=== PATIENT | female | born 1995 | race Caucasian/White ===

== ENCOUNTER 2021-08-24 10:10 | Emergency (ER) | payer OTHER, SELFPAY ==
[2021-08-24 10:22] VITALS: BP 111/75; PULSE 68; RESP 18; TEMP 36.5; O2SAT 100
--- NOTE | 2021-08-24 10:29 | ED.URI ---
HPI - URI/Sore Throat General Chief Complaint: Upper Respiratory Infection Stated Complaint: Sore Throat,Cough Time Seen by Provider: 08/24/21 10:30 Source: patient and RN notes reviewed Mode of arrival: ambulatory Limitations: no limitations History of Present Illness HPI Narrative: 25-year-old female presented for complaint of sinus pressure, congestion, sore throat, and cough for about 4 days. Endorses sick contacts, family is having similar symptoms. She is vaccinated for COVID but not flu. She has taken ibuprofen for symptoms. Denies shortness of breath, wheezing, nausea, vomiting, diarrhea, fever, chills or body aches. MD elicited complaint: cough Related Data Home Medications Medication Instructions Recorded Confirmed levothyroxine [Euthyrox] 88 mcg PO DAILY 08/24/21 08/24/21 sertraline 50 mg PO DAILY 08/24/21 08/24/21 Allergies Allergy/AdvReac Type Severity Reaction Status Date / Time No Known Allergies Allergy Mild Verified 08/24/21 10:35 Review of Systems Review of Systems: CONSTITUTIONAL: Denies malaise, chills, sweats, fever EYES: Denies visual changes, redness, or discharge ENT: Reports rhinorrhea, congestion, sinus pain, otalgia, sore throat CARDIOVASCULAR: Denies chest pain, palpitations, edema RESPIRATORY: Reports cough, post nasal drainage. Denies dyspnea GASTROINTESTINAL: Denies abdominal pain, nausea, vomiting, diarrhea SKIN: Denies rash or itching MUSCULOSKELETAL: Denies myalgia NEUROLOGIC: Denies headache Exam Narrative: GENERAL: Ill-appearing, nontoxic HEAD: Normocephalic EYES: PERRLA, conjunctivae clear ENT: Mucous membranes moist. TM pearly sanz with scarring and light reflex bilaterally; no tragal tenderness. Oropharynx erythematous without lesions or exudate, no drooling, no hoarseness, no trismus, uvula midline. No tripod positioning, muffled voice, soft palate or pharyngeal wall bulging NECK: Supple. No lymphadenopathy CHEST: Clear to auscultation, breath sounds equal. No wheezing, rhonchi, rales, or stridor. No respiratory distress, speaks in full sentences. HEART: Regular rate and rhythm. No murmur heard. SKIN: Warm, dry, no rash. NEURO: Alert and oriented x3. PSYCH: Normal mood and affect Course Course Emergency Course: Patient is aware of diagnosis, understands and agrees to treatment plan. Anticipatory guidance given. Patient agrees to follow-up as directed and is aware of reasons to seek care at the emergency department. Portions of this record may have been created with voice recognition software Level of Care: Express Care Visit Vital Signs Vital signs: Vital Signs Temperature 97.7 F 08/24/21 10:22 Pulse Rate 68 08/24/21 10:22 Respiratory Rate 18 08/24/21 10:22 Blood Pressure 111/75 08/24/21 10:22 Pulse Oximetry 100 08/24/21 10:22 Temperature 97.7 F 08/24/21 10:22 Pulse Rate 68 08/24/21 10:22 Respiratory Rate 18 08/24/21 10:22 Blood Pressure 111/75 08/24/21 10:22 Pulse Oximetry 100 08/24/21 10:22 reviewed MDM - URI/Sore Throat MDM Narrative Medical decision making narrative: strep neg, flu neg, covid neg Sx c/w URI, will continue supportive treatment and f/u with PCP. Differential Diagnosis Differential diagnosis: Likely upper respiratory infection, sinusitis, viral infection, influenza and pharyngitis Lab Data Attestation: I reviewed the patient's lab results. Labs: Strep Screen Presumptive Negative *(Reference Range: Negative)* Discharge Plan Discharge Clinical Impression: Upper respiratory infection Qualifiers: URI type: unspecified URI Qualified Code(s): J06.9 - Acute upper respiratory infection, unspecified Patient Disposition: Home, Self-Care Condition: Stable Instructions: Antibiotic Form, Upper Respiratory Infection (ED) Additional Instructions: Rapid strep swab was negative today You will be notified in a few days if the culture comes
== END 2021-08-24 11:05 | disposition home or self-care (01) ==
PROVIDERS: Emergency Provider Nurse Practitioner Family; PCP Family Medicine
DX: J06.9 Acute upper respiratory infection, unspecified (principal); Z20.822 Contact with and (suspected) exposure to COVID-19
CPT/HCPCS: 87081; 87426; 87804; 87880; 99213; C9803; G0463

== ENCOUNTER 2021-10-18 16:07 | Emergency (ER) | payer OTHER, SELFPAY ==
[2021-10-18 16:09] VITALS: BP 126/81; PULSE 88; RESP 18; TEMP 36.2; O2SAT 98
--- NOTE | 2021-10-18 16:35 | ED.FEMALEGU ---
HPI - Female Genitourinary General Chief complaint: Urogenital-Female Stated complaint: L ear pain, vaginal swelling Time Seen by Provider: 10/18/21 16:11 Source: patient Mode of arrival: ambulatory History of Present Illness HPI Narrative: 25-year-old female arrives today via EMS with multiple complaints. Patient with complaints of left ear pain, left throat pain, swollen labia, pain to the labia, and intermittent headache for the last few days. Patient recently was seen by her OB and had HSV testing that states has come back negative. Patient does endorse that she shaves frequently and changes her razor out may be every 2 weeks. Patient denies any abnormal vaginal drainage but did notice an increase in her regular drainage. Denies any urinary symptoms, itching, or concerns for STIs. Patient states she has had left ear pain over the last few days along with left throat pain. Patient denies cough, runny nose, shortness of breath, difficulty in breathing, fever, body aches, or difficulty swallowing. Patient denies any sick contacts. Related Data Home Medications Medication Instructions Recorded Confirmed levothyroxine [Euthyrox] 88 mcg PO DAILY 08/24/21 08/24/21 sertraline 50 mg PO DAILY 08/24/21 08/24/21 Allergies Allergy/AdvReac Type Severity Reaction Status Date / Time No Known Allergies Allergy Mild Verified 08/24/21 10:35 Review of Systems Review of Systems: CONSTITUTIONAL: Denies fever, chills, or sweats. EYES: Denies visual changes, redness, or discharge. ENT: Left ear pain and left throat pain. Denies rhinorrhea, congestion, or otalgia. CARDIOVASCULAR: Denies chest pain, palpitations, or edema. RESPIRATORY: Denies cough or dyspnea. GASTROINTESTINAL: Denies abdominal pain, nausea, vomiting, or diarrhea. GENITOURINARY: vaginal swelling Denies dysuria or hematuria. SKIN: Denies rash or itching. MUSCULOSKELETAL: Denies back pain, joint pain, or myalgia. NEUROLOGIC: Denies headache, numbness, dizziness, or weakness. PSYCHIATRIC: Denies anxiety or depression. Exam Narrative: GENERAL: Well-appearing, well-nourished, and in no acute distress. HEAD: Normocephalic, atraumatic. EYES: PERRLA and EOMI. ENT: Nares clear, no rhinorrhea or epistaxis. Mucous membranes moist. Oropharynx without tonsillar hypertrophy exudate or other lesions. Right ear canal with erythema and white over the tympanic membrane. NECK: Supple. No adenopathy or masses. No carotid bruits or JVD CHEST: Clear to auscultation. No respiratory distress. No wheezes rales or rhonchi HEART: Regular rate and rhythm. No murmur heard. Normal peripheral pulses. ABDOMEN: Soft, nontender, nondistended, normal active bowel sounds. EXTREMITIES: Normal range of motion. No edema. SKIN: Warm, dry, no rash. : Multiple small lesions noted to labia majora. Tenderness without erythema. NEURO: No focal deficits. Alert and oriented x3. PSYCH: Normal mood and affect. Course Vital Signs Vital signs: Vital Signs Temperature 36.2 C L 10/18/21 16:09 Pulse Rate 88 10/18/21 16:09 Respiratory Rate 18 10/18/21 16:09 Blood Pressure 126/81 10/18/21 16:09 Pulse Oximetry 98 10/18/21 16:09 Temperature 36.2 C L 10/18/21 16:09 Pulse Rate 88 10/18/21 16:09 Respiratory Rate 18 10/18/21 16:09 Blood Pressure 126/81 10/18/21 16:09 Pulse Oximetry 98 10/18/21 16:09 MDM - Female Genitourinary MDM Narrative Medical decision making narrative: HPI as noted. With regarding developed renal swelling. Multiple sores were noted to labia majora. Patient with previous HSV testing this week that was negative. Patient does admit to shaving. Concerns for folliculitis and less likely HSV. Left ear with erythema to canal and tympanic membrane white and hard to see. Acute otitis externa and acute otitis media likely. Patient be treated with antibiotics oral, eardrops, and topical for the folliculitis. She is instructed to return to her primary for [facility]
== END 2021-10-18 16:53 | disposition home or self-care (01) ==
PROVIDERS: Emergency Provider Nurse Practitioner Family; PCP Family Medicine
DX: H60.502 Unspecified acute noninfective otitis externa, left ear (principal); H66.92 Otitis media, unspecified, left ear; L73.9 Follicular disorder, unspecified
CPT/HCPCS: 99283